=== PATIENT | female | born 1945 | race Caucasian/White ===

== ENCOUNTER 2019-08-25 07:49 | Observation (INO) | payer MEDICARE, OTHER ==
[2019-08-22 17:09] LABS: BASOPHILS % 0.3 % (0.0-1.0); EOSINOPHILS # (AUTO) 0.3 (0.0-0.4); EOSINOPHILS % 4.4 % (0.0-6.0); HEMATOCRIT 44.8 % (34.2-44.1); HEMOGLOBIN 14.6 g/dL (12.0-16.0); LYMPHOCYTES # (AUTO) 1.4 (1.0-3.2); LYMPHOCYTES % 17.4 % (18.0-39.1); MEAN CORPUSCULAR HEMOGLOBIN 28.5 pg (28-32); MEAN CORPUSCULAR HGB CONC 32.6 g/dL (31-35); MEAN CORPUSCULAR VOLUME 87.3 fL (81-99); MONOCYTES # (AUTO) 0.7 (0.2-0.8); MONOCYTES % 8.5 % (4.4-11.3); NEUTROPHILS # (AUTO) 5.4 (2.1-6.9); PLATELET COUNT 285 x10e3/uL (140-360); RED BLOOD COUNT 5.13 x10e6/uL (3.6-5.1); RED CELL DISTRIBUTION WIDTH 13.2 % (11.7-14.4)
[2019-08-22 17:27] LABS: ALBUMIN 4.1 g/dL (3.5-5.0); ALBUMIN/GLOBULIN RATIO 1.1 (0.8-2.0); ANION GAP 15.1 mmol/L (8-16); CALCIUM 9.5 mg/dL (8.4-10.2); CREATININE, SERUM 0.94 mg/dL (0.57-1.11); INR 0.92; PARTIAL THROMBOPLASTIN TIME 29.7 seconds (23.8-35.5); POTASSIUM 4.1 mmol/L (3.5-5.1); PROTHROMBIN TIME 12.8 seconds (11.9-14.5)
[2019-08-22 17:37] LABS: CHOL/HDL RATIO 3.1 (3.0-3.6)
[~2019-08-25] VITALS: Ht 152.4 cm; Wt 91.8 kg
[2019-08-25] VITALS (11 sets, daily range): BP systolic 116–177; BP diastolic 43–107
[~2019-08-25 07:49] MED LIST: ACIDOPHILUS1 EAC1 PO; ALLEGRA-D 24 H1 EACH PO; ASPIR 8181 MG PO; CALCIUM PO; CITALOPRAM HBR20 MG PO; IRBESARTAN150 MG PO; KEFLEX500 MG PO; MELOXICAM7.5 MG PO; OMEPRAZOLE40 MG PO; PRAVASTATIN SOD80 MG PO; TYLENOL WITH C1 EACH PO; VITAMIN D31000 UNIT PO
[2019-08-25] MEDS ORDERED: ASPIRIN 325 MG TAB ONE (09:19)
[2019-08-25] MEDS ORDERED: SODIUM CHLORIDE 0.9% 1000ML 1,000 ML ONE (09:19)
[2019-08-25] MEDS ORDERED: HEPARIN SOD (PORCINE) 1000 UNIT/ML 30ML ONE (09:48)
[2019-08-25] MEDS ORDERED: NITROGLYCERIN/D5W 200 MCG/ML 250 ML ONE (09:49)
[2019-08-25] MEDS ORDERED: FENTANYL CITRATE/PF 100MCG/2 ML INJ ONE (09:49)
[2019-08-25] MEDS ORDERED: IOPAMIDOL 370 MG/ML 200 ML INFUS..BTL INJ ONE (09:49)
[2019-08-25] MEDS ORDERED: MIDAZOLAM HCL 2 MG/2 ML VIAL ONE (09:49)
[2019-08-25] MEDS ORDERED: HEPARIN SOD/SOD CHLORIDE 2,000 ML ONE (09:49)
[2019-08-25] MEDS ORDERED: LIDOCAINE HCL 2% LOCAL 20 ML VIAL ONE (09:49)
[2019-08-25] MEDS ORDERED: VANCOMYCIN 1GM/NS 250 ML 250 ML ONE (10:25)
[2019-08-25] MEDS ORDERED: TICAGRELOR 90 MG TABLET ONE (10:33)
[2019-08-25] MEDS ORDERED: SODIUM CHLORIDE 0.9% 50ML 50 ML ONE (10:37)
[2019-08-25] MEDS ORDERED: PROTAMINE SULFATE 10 MG/ML 5 ML VIAL ONE (10:37)
--- NOTE | 2019-08-25 12:51 | NUR ---
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 She is awake alert and oriented x3. Dressing to right femoral is dry and intact, no signs of bleeding. Patient was educated on laying flat until 1430. She was oriented on how to use the call light.
[2019-08-25] MEDS: ACETAMINOPHEN 325 MG TAB PO PRN ×2 (14:58→22:17)
--- NOTE | 2019-08-25 17:29 | NUR ---
dressing to right groin continues to be dry and intact with no signs of hematoma or bleeding. Right lower extremity is warm to touch and pulse is present
[2019-08-25] MEDS ORDERED: SIMVASTATIN 40 MG TAB PO SCH (21:00)
[2019-08-25] MEDS ORDERED: TICAGRELOR 90 MG TABLET PO SCH (21:00)
--- NOTE | 2019-08-25 22:48 | Operative Report ---
DATE OF PROCEDURE: 08/25/2019 SURGEON: Jl Peoples MD PROCEDURE: Cardiac catheterization. PROCEDURE INDICATION: Angina pectoris and abnormal stress test. PROCEDURES PERFORMED: 1. Left heart catheterization. 2. Selective coronary angiography. 3. First diagonal drug-eluting stent PCI. PROCEDURE COMPLICATIONS: None. ESTIMATED BLOOD LOSS: Less than 15 mL. PROCEDURE SUMMARY: After consent was obtained, the patient was prepped and draped in a sterile fashion. The right femoral site was locally infiltrated with 2% lidocaine with micropuncture kit, access was obtained and a 6-Algerian sheath was placed. All catheters were railed over a leading J-wire into the proximal ascending aorta. Angiography was performed as will be described below and it was then decided to proceed with diagonal drug-eluting stent PCI as will be described below . A JL4 and a JR4 six-Algerian catheters were used for the angiographic assessment of the left main and the right coronary artery with angiography performed in multiple views. The JR4 was also used to cross the aortic valve for hemodynamic measurements. No left ventriculogram was performed. These were the following findings. 1. The LV pressure is 176/4 with end-diastolic pressure of 25. 2. Aortic pressure was 167/60. 3. There was no left ventriculogram performed. 4. Left main is large in caliber with luminal irregularities giving an LAD and circumflex. 5. The LAD has proximal 30% to 40% diffuse stenosis and mid 30% to 40% diffuse stenosis. diagonal is medium in caliber, and has 95% stenosis and DASHA-2 flow. 6. The circumflex is large in caliber, it gives 2 obtuse marginal a small to medium caliber and has 50%-60% small caliber. 7. The right coronary artery is dominant. It has 40% to 50% proximal stenosis and gives a terminal RPDA and RPLV. INTERVENTION: First diagonal was wired with a Runthrough wire. Predilatation was performed with a 2.0 x 12 Emerge balloon inflated to 14 atmospheres serially and across the target lesion, after which the Resolute [place] 2.5 x 80 drug eluting stent was deployed to 16 atmospheres across the target lesion. Preprocedure DASHA flow 2 and post procedure 3. Preprocedure stenosis 95%. Postprocedure less than 10%. No flow-limiting dissections or perforations observed post intervention. CONCLUSION: First diagonal drug-eluting stent PCI. Residual moderate LAD, 1st obtuse marginal and proximal RCA disease. RECOMMENDATIONS: Medical aggressive therapy, aspirin, and Brilinta. MD EDMAR Vegas/BIANCA /[id number] MTDD
[2019-08-26 00:30] VITALS: BP 133/62
[2019-08-26 03:45] VITALS: BP 129/61
[2019-08-26 08:01] VITALS: BP 148/67
[2019-08-26 08:19] VITALS: BP 148/67
[2019-08-26] MEDS ORDERED: BRILINTA90 MG PO (08:51)
[2019-08-26] MEDS ORDERED: OYST-CAL-D 500MG TABLET PO SCH (09:00)
[2019-08-26] MEDS ORDERED: CITALOPRAM HYDROBROMIDE 20 MG TAB PO SCH (09:00)
[2019-08-26] MEDS ORDERED: TICAGRELOR 90 MG TABLET PO SCH (09:00)
[2019-08-26] MEDS ORDERED: NON-FORMULARY MEDICATION ([Calcium] 600 MG) PO SCH (09:00)
[2019-08-26] MEDS ORDERED: LACTOBACILLUS ACIDOPHILUS CAPSULE PO SCH (09:00)
[2019-08-26] MEDS ORDERED: CHOLECALCIFEROL 1,000 UNIT TAB PO SCH (09:00)
[2019-08-26] MEDS ORDERED: CHOLECALCIFEROL 1000 UNIT PO SCH (09:00)
[2019-08-26] MEDS ORDERED: IRBESARTAN 150 MG TAB PO SCH (09:00)
[2019-08-26] MEDS ORDERED: ASPIRIN 81 MG ENTERIC COATED PO SCH (09:00)
[2019-08-26] MEDS ORDERED: PANTOPRAZOLE SOD 40 MG TABEC PO SCH (09:00)
--- NOTE | 2019-08-26 09:00 | NUR ---
Discharge instructions were given to the patient, she has a prescription for Brilinta and a follow up appointment scheduled with Dr. Hammond
== END 2019-08-26 10:00 | disposition home or self-care (01) ==
LOC: CATH LAB 07:49 → PACU V 12:43 → UNDOADMIN 12:43 → PACU V 14:14 → MED/SURG2 14:50
PROVIDERS: ADMIT Internal Medicine Cardiovascular Disease; ATTEND Internal Medicine Cardiovascular Disease
DX: I25.119 Atherosclerotic heart disease of native coronary artery with unspecified angina pectoris (principal); Z01.810 Encounter for preprocedural cardiovascular examination; Z01.812 Encounter for preprocedural laboratory examination; I10 Essential (primary) hypertension; E78.5 Hyperlipidemia, unspecified; R73.01 Impaired fasting glucose; E66.01 Morbid (severe) obesity due to excess calories; Z68.41 Body mass index [BMI] 40.0-44.9, adult; K21.9 Gastro-esophageal reflux disease without esophagitis; K44.9 Diaphragmatic hernia without obstruction or gangrene; Z90.49 Acquired absence of other specified parts of digestive tract; Z80.3 Family history of malignant neoplasm of breast; Z82.49 Family history of ischemic heart disease and other diseases of the circulatory system; Z83.3 Family history of diabetes mellitus; Z80.8 Family history of malignant neoplasm of other organs or systems; Z88.0 Allergy status to penicillin
CPT/HCPCS: 93458; C9600; 36415; 80053; 80061; 83036; 85025; 85610; 85730; 92928; 93005; 99152; 99153; C1725; C1760; C1769; C1874; G0378; J1644; J2001; J2250; J2720; J3010; J3370; J7030; Q9967

== ENCOUNTER → 2020-05-13 | Day surgery (SDC) | payer MEDICARE, OTHER ==
[2020-05-10 12:06] LABS: BASOPHILS % 0.4 % (0.0-1.0); EOSINOPHILS # (AUTO) 0.2 (0.0-0.4); EOSINOPHILS % 3.3 % (0.0-6.0); HEMATOCRIT 39.4 % (34.2-44.1); LYMPHOCYTES # (AUTO) 1.1 (1.0-3.2); LYMPHOCYTES % 20.4 % (18.0-39.1); MEAN CORPUSCULAR HEMOGLOBIN 27.2 pg (28-32); MEAN CORPUSCULAR HGB CONC 30.5 g/dL (31-35); MEAN CORPUSCULAR VOLUME 89.3 fL (81-99); MONOCYTES # (AUTO) 0.5 (0.2-0.8); MONOCYTES % 8.5 % (4.4-11.3); NEUTROPHILS # (AUTO) 3.7 (2.1-6.9); NEUTROPHILS % 67.2 % (38.7-80.0); PLATELET COUNT 221 x10e3/uL (140-360); RED BLOOD COUNT 4.41 x10e6/uL (3.6-5.1); RED CELL DISTRIBUTION WIDTH 13.2 % (11.7-14.4)
[2020-05-10 12:19] LABS: INR 0.86; PROTHROMBIN TIME 12.1 seconds (11.9-14.5)
[2020-05-10 12:33] LABS: ALBUMIN 3.6 g/dL (3.5-5.0); ALBUMIN/GLOBULIN RATIO 1.1 (0.8-2.0); ANION GAP 11.7 mmol/L (8-16); CALCIUM 8.7 mg/dL (8.4-10.2); CHOL/HDL RATIO 2.7 (3.0-3.6); CREATININE, SERUM 0.98 mg/dL (0.57-1.11); POTASSIUM 4.7 mmol/L (3.5-5.1)
[~2020-05-13] VITALS: Ht 152.4 cm; Wt 94.8 kg
[2020-05-13] VITALS (11 sets, daily range): BP systolic 83–154; BP diastolic 65–77
[~2020-05-13] MED LIST changes: +ALENDRONATE SOD70 MG PO; +ATORVASTATIN CA20 MG PO; +BRILINTA90 MG PO; +CLOPIDOGREL75 MG PO; +FENTANYL CITRATE/PF 100MCG/2 ML INJ ONE; +HEPARIN SOD (PORCINE) 1000 UNIT/ML 30ML ONE; +HEPARIN SOD/SOD CHLORIDE 2,000 ML ONE; +IOPAMIDOL 370 MG/ML 200 ML INFUS..BTL INJ ONE; +ISOSORBIDE MONO30 MG PO; +LASIX20 MG PO; +LIDOCAINE HCL 2% LOCAL 20 ML VIAL ONE; +METOPROLOL SUCC50 MG PO; +MIDAZOLAM HCL 2 MG/2 ML VIAL ONE; +NITROGLYCERIN/D5W 200 MCG/ML 0 ML ONE; +PROBIOTIC250 MG PO; +SODIUM CHLORIDE 0.9% 1000ML 1,000 ML ONE; +SPIRONOLACTONE25 MG PO; +VITAMIN D PO
--- NOTE | 2020-05-13 10:15 | NUR ---
1015am RECEIVING NOTE [facility] [employer] [facility]PT............................................................... Bedside report received from HERNÁN Barrientos. [id number]. Alert oriented and appropriate, PERRLA, respirations even and unlabored to room air. Pulses x4 extremities equal and strong. Pedal pulses PT/DP x4 Doppler Cap fill brisk < 3 sec. Rt groin angioseal No gross issues pain,pallor,pressure or dysrhythmia. Skin warm and dry integrity appears D/I IV 20g to left iv at 100cchr, presents healthy w/o s/s of infiltration or complaint. Abdomen soft and supple. pt offered toileting, denies need to urinate or defecate. No personal affects with patient. Family at bedside dc plans finished will have surgical consult potential CABG olayinka at [place]. Pt and family verbalizes understanding of POC. Currently w/o complaint of pain or need. Down time 145pm if tolerated HOB elevated may dc home at 2pm. ds/rn
--- NOTE | 2020-05-13 12:04 | Operative Report ---
DATE OF PROCEDURE: 05/13/2020 SURGEON: Jl Peoples MD PROCEDURE: Cardiac catheterization PROCEDURE INDICATION: The patient with unstable angina and history of CAD with previous coronary stents. PROCEDURES PERFORMED: 1. Left heart catheterization. 2. Selective coronary angiography. 3. 6-Bengali Angio-Seal closure. 4. Moderate sedation. PROCEDURE COMPLICATIONS: None. ESTIMATED BLOOD LOSS: Less than 15 mL. PROCEDURE SUMMARY: After consent was obtained, the patient was prepped and draped in a sterile fashion. The right femoral site was locally infiltrated with 2% lidocaine and with micropuncture kit, a 6-Bengali sheath was placed. A 6-Bengali JL4 and JR4 catheters were used to engage the left main, right coronary artery. Pigtail catheter to cross the aortic valve. The following findings were noted on angiography. 1. The LV pressure was 172/7 with end-diastolic pressure of 18-31. 2. Aortic pressure is 171/64. 3. LV-gram reveals preserved left ventricular systolic function, normal regional wall motion and left ventricular ejection fraction of 60% to 65%. 4. Left main is large in caliber with luminal irregularities. It gives an LAD, ramus intermedius, and circumflex. 5. LAD has proximal 80% stenosis. It gives a diagonal that has patent stent with 30% proximal in-stent restenosis, [id number] LAD has luminal irregularities. 6. The ramus intermedius has an area of 60% to 70% tubular proximal stenosis. 7. The left circumflex has luminal irregularities, gives 2 obtuse marginals. 8. The right coronary artery has ostial tubular 70% stenosis. It gives RV marginal and terminal RPDA and RPLV. This is a dominant RCA. CONCLUSION: Severe multivessel coronary artery disease with new worsening lesion in the proximal LAD. Given the proximity to bifurcation with stent in place and associated ramus intermedius significant stenosis. We discussed with the patient revascularization options, which include complex PCI versus aortic coronary bypass. The patient is agreeable with proceeding with bypass evaluation. Conclusion, multivessel coronary artery disease. RECOMMENDATIONS: Evaluation for aortic coronary bypass. I offered the patient transfer within hospital. She prefers outpatient expedited workup. We will make contact with [facility] Surgery today and initiate outpatient consultation and workup. We will also uptitrated isosorbide mononitrate and continue rest of cardiovascular medications for now. MD EDMAR Vegas/BIANCA /[id number]
--- NOTE | 2020-05-13 14:00 | NUR ---
1400 am RECEIVING NOTE [employer] DEPT............................................................... Bedside report received from RN. Identifierx2. Alert oriented and appropriate, PERRLA, respirations even and unlabored to room air. Pulses x4 extremities equal and strong. Pedal pulses PT/DPx4 and marked. Cap fill brisk < 3 sec. rt groin site dry and intact No gross issues pain,pallor pressure or Dysrhythmia. Skin warm and dry integrity appears D/I IV 20g to left hand presents healthy w/o s/s of infiltration or complaint. Abdomen soft and supple. pt offered toileting, denies need to urinate or defecate. No personal affects with patient. Family arrived at [facility]. Pt and family verbalizes understanding of POC. Currently w/o complaint of pain or need. ds/rn
== END | disposition home or self-care (01) ==
LOC: CATH LAB 07:07
PROVIDERS: ATTEND Internal Medicine Cardiovascular Disease
DX: I25.110 Atherosclerotic heart disease of native coronary artery with unstable angina pectoris (principal); I34.2 Nonrheumatic mitral (valve) stenosis; I35.9 Nonrheumatic aortic valve disorder, unspecified; I65.29 Occlusion and stenosis of unspecified carotid artery; I10 Essential (primary) hypertension; E78.5 Hyperlipidemia, unspecified; K21.9 Gastro-esophageal reflux disease without esophagitis; Z88.0 Allergy status to penicillin; R73.01 Impaired fasting glucose; E66.01 Morbid (severe) obesity due to excess calories; Z01.812 Encounter for preprocedural laboratory examination; Z11.59 Encounter for screening for other viral diseases; Z79.82 Long term (current) use of aspirin; Z79.02 Long term (current) use of antithrombotics/antiplatelets; Z68.38 Body mass index [BMI] 38.0-38.9, adult; Z82.49 Family history of ischemic heart disease and other diseases of the circulatory system
CPT/HCPCS: 36415; 80053; 80061; 85025; 85610; 85730; 93458; C1760; J2001; J2250; J3010; J7030; Q9967; U0002; 99152; J1644